=== PATIENT | female | born 1980 | race Caucasian/White ===

== ENCOUNTER 2019-03-01 16:40 | Emergency (ER) | payer OTHER ==
[~2019-03-01] VITALS: Ht 157.5 cm; Wt 137.9 kg
[~2019-03-01 16:40] MED LIST: ALLEGRA ALLERG180 MG PO; AMARYL2 MG PO; B12INJ; CIPROFLOXACIN500 M1 PO; GLUCOPHAGE XR500 MG PO; LIPITOR20 MG PO; LISINOPRIL5 MG PO; PERCOCET 5-3251 EACH PO; ZOFRAN ODT4 MG PO; ZOLOFT100 MG PO
[2019-03-01 17:04] LABS: ABSOLUTE NEUTROPHILS 13.1 thou/uL (1.4-8.2); BASOPHILS 0.9 % (0.0-2.0); HEMATOCRIT 42.5 % (37.0-47.0); HEMOGLOBIN 13.7 gm/dL (12.0-15.0); LYMPHOCYTES 19.1 % (24.0-44.0); MCHC 32.2 g/dL (28.0-37.0); MCV 80.7 fL (80.0-100.0); RBC 5.26 mil/uL (4.20-5.00); RDW 17.5 % (10.5-14.5); WBC 19.9 thou/uL (4.0-11.0)
[2019-03-01] MEDS ORDERED: TRESIBA FL100 UNIT/1 SUBQ (17:06)
[2019-03-01] MEDS ORDERED: TRULICITY1.5 MG/0.5 SUBQ (17:06)
[2019-03-01 17:13] LABS: ANION GAP 12 mmol/L (7-16); BUN 16 mg/dL (7-18); CHLORIDE 99 mmol/L (98-107); CO2 26 mmol/L (21-32); GLUCOSE 173 mg/dL (74-106); POTASSIUM 4.3 mmol/L (3.5-5.1); SODIUM 137 mmol/L (136-145)
[2019-03-01 17:22] LABS: ALBUMIN 4.1 g/dL (3.4-5.0); MAGNESIUM 1.8 mg/dL (1.8-2.4); SGOT 22 U/L (15-37); SGPT 25 U/L (30-65); TOTAL BILIRUBIN 0.3 mg/dL (<0.1-1.0); TOTAL PROTEIN 8.6 g/dL (6.4-8.2); TROPONIN-I <0.06 ng/mL (<0.06)
[2019-03-01 17:23] LABS: PLATELET COUNT 345 thou/uL (150-400)
[2019-03-01 17:34] LABS: URINE BILIRUBIN NEGATIVE (Negative); URINE BLOOD NEGATIVE (Negative); URINE CLARITY CLEAR; URINE COLOR YELLOW; URINE GLUCOSE-RANDOM* 3+ (Negative); URINE KETONES NEGATIVE (Negative); URINE LEUKOCYTES-REFLEX TRACE (Negative); URINE NITRITE-REFLEX NEGATIVE (Negative); URINE PROTEIN (DIPSTICK) NEGATIVE (Negative); URINE SPECIFIC GRAVITY <= 1.005 (1.005-1.035); URINE UROBILINOGEN 0.2 E.U./dl (0.2-1.0)
[2019-03-01 19:58] VITALS: BP 103/58
--- NOTE | 2019-03-02 08:02 | EKG ---
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
== END 2019-03-01 19:58 | disposition home or self-care (01) ==
LOC: ER 16:40
PROVIDERS: Emergency Medicine; Nurse Practitioner
DX: R07.9 Chest pain, unspecified (principal); I10 Essential (primary) hypertension; E11.9 Type 2 diabetes mellitus without complications; E78.00 Pure hypercholesterolemia, unspecified; K21.9 Gastro-esophageal reflux disease without esophagitis; E28.2 Polycystic ovarian syndrome; E66.9 Obesity, unspecified; F41.9 Anxiety disorder, unspecified; F17.210 Nicotine dependence, cigarettes, uncomplicated; Z68.43 Body mass index [BMI] 50.0-59.9, adult; Z90.49 Acquired absence of other specified parts of digestive tract; Z88.2 Allergy status to sulfonamides; Z79.4 Long term (current) use of insulin

== ENCOUNTER 2019-05-03 23:15 | Emergency (ER) | payer OTHER ==
[~2019-05-03] VITALS: Ht 157.5 cm; Wt 131.5 kg
[~2019-05-03 23:15] MED LIST changes: +TRESIBA FL100 UNIT/1 SUBQ; +TRULICITY1.5 MG/0.5 SUBQ
[2019-05-04 00:18] LABS: ABSOLUTE NEUTROPHILS 9.3 thou/uL (1.4-8.2); EOSINOPHILS 1.8 % (0.0-3.0); HEMATOCRIT 36.9 % (37.0-47.0); HEMOGLOBIN 11.7 gm/dL (12.0-15.0); LYMPHOCYTES 16.6 % (24.0-44.0); MCH 25.6 pg (26.0-34.0); MCHC 31.8 g/dL (28.0-37.0); MCV 80.6 fL (80.0-100.0); MONOCYTES 5.9 % (1.0-8.0); PLATELET COUNT 334 thou/uL (150-400); POLYS 74.7 % (36.0-66.0); RBC 4.58 mil/uL (4.20-5.00); RDW 17.3 % (10.5-14.5); WBC 12.4 thou/uL (4.0-11.0)
[2019-05-04 00:29] LABS: ANION GAP 12 mmol/L (7-16); BUN 16 mg/dL (7-18); CALCIUM 9.5 mg/dL (8.5-10.1); CHLORIDE 102 mmol/L (98-107); CO2 24 mmol/L (21-32); CREATININE 1.2 mg/dL (0.6-1.0); GLUCOSE 195 mg/dL (74-106); POTASSIUM 4.1 mmol/L (3.5-5.1); SODIUM 138 mmol/L (136-145)
[2019-05-04 00:40] LABS: TROPONIN-I <0.06 ng/mL (<0.06)
[2019-05-04 01:52] VITALS: BP 127/71
--- NOTE | 2019-05-04 07:59 | EKG ---
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
== END 2019-05-04 02:02 | disposition home or self-care (01) ==
LOC: ER 23:15
PROVIDERS: Emergency Medicine
DX: F41.0 Panic disorder [episodic paroxysmal anxiety] (principal); E11.9 Type 2 diabetes mellitus without complications; E78.00 Pure hypercholesterolemia, unspecified; K21.9 Gastro-esophageal reflux disease without esophagitis; F17.210 Nicotine dependence, cigarettes, uncomplicated; Z79.4 Long term (current) use of insulin; Z79.899 Other long term (current) drug therapy; Z88.2 Allergy status to sulfonamides; Z90.49 Acquired absence of other specified parts of digestive tract

== ENCOUNTER 2019-11-16 22:53 | Emergency (ER) | payer OTHER ==
[~2019-11-16] VITALS: Ht 157.5 cm; Wt 125.7 kg
[2019-11-16] MEDS ORDERED: PROTONIX40 M4 PO (23:00)
[2019-11-16] MEDS ORDERED: FENOFIBRATE150 MG PO (23:01)
[2019-11-17 01:46] LABS: URINE BILIRUBIN NEGATIVE (Negative); URINE BLOOD NEGATIVE (Negative); URINE CLARITY CLEAR; URINE COLOR YELLOW; URINE GLUCOSE-RANDOM* NEGATIVE (Negative); URINE KETONES NEGATIVE (Negative); URINE LEUKOCYTES-REFLEX TRACE (Negative); URINE PROTEIN (DIPSTICK) NEGATIVE (Negative)
[2019-11-17 01:48] LABS: URINE NITRITE-REFLEX POSITIVE (Negative)
[2019-11-17 01:52] LABS: BACTERIA-REFLEX >30 Many /HPF (None Seen); CRYSTALS None Seen /LPF (None Seen); HYALINE CASTS 0-3 Few /LPF (None Seen); MUCUS 0-3 Light strn/LPF (None Seen); SQUAMOUS 4-10 Moderate /LPF (0-3); URINE RBC None Seen /HPF (0-2); URINE WBC-REFLEX None Seen /HPF (0-5)
[2019-11-17 02:24] VITALS: BP 118/71
--- NOTE | 2019-11-17 09:49 | EKG ---
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1980 Requested By: Pilo Faulkner Order Number: [id number] MD: Elmer Mohamud Measurements Intervals [place] Rate: 82 P: 37 [place]: 138 QRS: 56 QRSD: 87 T: 42 QT: 380 QTc: 444 Interpretive Statements Sinus rhythm No significant abnormality Compared to ECG 05/03/2019 23:42:52 No significant change was found Electronically Signed On 11-17-2019 9:48:27 CDT by Elmer Mohamud [email or web address] <ELECTRONICALLY SIGNED> By: Elmer Mohamud MD, [facility] 11/17/19 [phone] Elmer Mohamud MD, [facility] /EPI
--- NOTE | 2019-11-20 07:55 | EKG ---
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1980 Requested By: Pilo Faulkner Order Number: [id number] MD: Elmer Mohamud Measurements Intervals [place] Rate: 80 P: 32 [place]: 139 QRS: 56 QRSD: 87 T: 36 QT: 373 QTc: 431 Interpretive Statements Sinus rhythm Normal tracing Compared to ECG 11/17/2019 01:01:12 No significant change was found Electronically Signed On 11-20-2019 7:55:19 CDT by Elmer Mohamud [email or web address] <ELECTRONICALLY SIGNED> By: Elmer Mohamud MD, [facility] 11/20/19 [phone] 0106 Elmer Mohamud MD, [facility] /EPI
== END 2019-11-17 02:46 | disposition home or self-care (01) ==
LOC: ER 22:53
PROVIDERS: Emergency Medicine
DX: H81.399 Other peripheral vertigo, unspecified ear (principal)